=== PATIENT | female | born 1970 | race Caucasian/White ===

== ENCOUNTER 2016-11-25 06:52 | Emergency (ER) | payer BC ==
[~2016-11-25] VITALS: Ht 165.1 cm; Wt 88.4 kg
[~2016-11-25 06:52] MED LIST: ASPI81TA11 PO; ATOR10TA PO; BENI20TA25 PO; CLAR10TA7 PO; DULE100A PO; LATU40TA PO; OMEP20TA39 PO; ROBIDM5S PO; TOPA15CA PO; VERA240CR PO
[2016-11-25 06:55] VITALS: BP 147/101; PULSE 96; RESP 20; TEMP 98.4; O2SAT 96
[2016-11-25] MEDS ORDERED: TRAZ50TA12 PO (07:03)
[2016-11-25] MEDS ORDERED: HYDR25TA5 PO (07:03)
[2016-11-25] MEDS ORDERED: LURA40 PO (07:03)
[2016-11-25] MEDS ORDERED: LEXA20TA PO (07:03)
[2016-11-25] MEDS ORDERED: BENI5TAB4 PO (07:03)
[2016-11-25] MEDS ORDERED: OMEP20TA PO (07:03)
[2016-11-25] MEDS ORDERED: FISHCAP4 PO (07:03)
--- NOTE | 2016-11-25 07:23 | PD ---
HPI Chief Complaint: Respiratory Symptoms Time Seen by Provider: 07:15 Travel History International Travel<30 days: No Contact w/Intl Traveler<30days: No Traveled to known affect area: No History of Present Illness HPI The patient was seen and examined in the presence of the nurse. She complains of shortness of breath and wheezing. Duration 2 days. Severity is moderate. No fever. She does have a dry cough. She quit smoking 2 years ago. No alleviating factors. PFSH Past Medical History Hx Anticoagulant Therapy: Yes Arthritis: No Asthma: Yes Anxiety: Yes Depression: No Cancer: No Cardiovascular Problems: Yes (htn) High Cholesterol: Yes COPD: No Cerebrovascular Accident: Yes (TIA 2014) Diabetes: No Diminished Hearing: No Endocrine: No Gastrointestinal Disorders: Yes GERD: Yes Genitourinary: No Headaches: Yes Hiatal Hernia: Yes Hypertension: Yes Implanted Vascular Access Dvce: No Kidney Stones: No Musculoskeletal: No Neurologic: No Psychiatric: Yes Reproductive: Yes (UTERINE TUMORS) Respiratory: Yes (ashtma) Immunizations Current: Yes Migraines: Yes Renal Failure: No Seizures: No Sleep Apnea: No Ulcer: No Tetanus Vaccination: Unknown ?: Not Past Surgical History Abdominal Surgery: Yes (NATALIE, HYSTERECTOMY) Cardiac Surgery: No Cholecystectomy: Yes Ear Surgery: No Endocrine Surgery: No Eye Surgery: No Genitourinary Surgery: No Gynecologic Surgery: Yes (HYSTERECTOMY) Hysterectomy: Yes Neurologic Surgery: No Oral Surgery: Yes (ABSCESS LEFT SALIVARY GLAND) Thoracic Surgery: No Other Surgery: Yes (cyst left wrist) Social History Alcohol Use: No Tobacco Use: No (FORMER) Substance Use: No Allergies-Medications (Allergen,Severity, Reaction): Coded Allergies: Biaxin (Verified Allergy, Severe, Respiratory Failure, 11/25/16) Keflex (Verified Allergy, Severe, Hives, 11/25/16) Stadol (Verified Allergy, Severe, Tachycardia, 11/25/16) Penicillin (Verified Allergy, Unknown, told as child, 11/25/16) Sulfa (Verified Allergy, Unknown, told as child, 11/25/16) Reported Meds & Prescriptions Reported Meds & Active Scripts Active Prednisone 20 Mg Tab 40 Mg PO DAILY 5 Days Reported Trazodone (Trazodone HCl) 50 Mg Tab 50 Mg PO HS Latuda (Lurasidone) 40 Mg Tab 40 Mg PO DAILY Omeprazole 20 Mg Tab 20 Mg PO DAILY Fish Oil + D3 (Fish Oil-Cholecalciferol) 1,200-1,000 Mg-Unit Cap 1 Cap PO DAILY Lexapro (Escitalopram Oxalate) 20 Mg Tab 20 Mg PO DAILY Hydrochlorothiazide 25 Mg Tab 25 Mg PO DAILY Benicar (Olmesartan) 5 Mg Tab 10 Mg PO DAILY Review of Systems General / Constitutional: No: Fever Eyes: No: Visual changes HENT: No: Headaches Cardiovascular: No: Chest Pain or Discomfort Respiratory: Positive: Cough, Shortness of Breath, Wheezing Gastrointestinal: No: Abdominal Pain Genitourinary: No: Dysuria Musculoskeletal: No: Pain Skin: No Rash Neurologic: No: Weakness Psychiatric: No: Depression Endocrine: No: Polydipsia Hematologic/Lymphatic: No: Easy Bruising Physical Exam Narrative GENERAL: Well-nourished, well-developed patient with wheezing . SKIN: Warm and dry. HEAD: Atraumatic. Normocephalic. EYES: Pupils equal and round. No scleral icterus. No injection or drainage. ENT: No nasal bleeding or discharge. Mucous membranes pink and moist. NECK: Trachea midline. No JVD. CARDIOVASCULAR: Regular rate and rhythm. No murmur appreciated. RESPIRATORY: No accessory muscle use. Diffuse expiratory wheezing without crackles. Breath sounds equal bilaterally. GASTROINTESTINAL: Abdomen soft, non-tender, nondistended. Hepatic and splenic margins not palpable. MUSCULOSKELETAL: No obvious deformities. No clubbing. No cyanosis. No edema. NEUROLOGICAL: Awake and alert. No obvious cranial nerve deficits. Motor grossly within normal limits. Normal speech. PSYCHIATRIC: Appropriate mood and affect; insight and judgment normal. Data Data Last Documented VS Vital Signs Date Time Temp Pulse Resp B/P Pulse Ox O2 Delivery O2 Flow Rate FiO2 11/25/16 08:32 93 18 96 Room Air 11/25/16 06:55 98.4 147/101 Orders Methylprednisolone So Succ Inj (Solumedr (11/25/16 07:30) Albuterol-Ipratropium Neb (Duoneb Neb) (11/25/16 07:30) MDM Medical Decision Making Medical Screen Exam Complete: Yes Emergency Medical Condition: Yes Medical Record Reviewed: Yes Differential Diagnosis Asthma exacerbation, bronchitis, pneumonia Narrative Course I have reviewed the patient's electronic medical record. She has been here multiple times for asthma exacerbations I gave her series of 3 nebulizer treatments Gave her steroid injection On reassessment she is improved. Much less wheezing. 5 days of prednisone written Diagnosis Primary Impression: Asthma with acute exacerbation in adult Additional Instructions: The patient was advised to follow up with their physician and return if they worsen. Med/Other Pt SpecificInfo: Prescription(s) given Scripts Prednisone 20 Mg Tab40 Mg PO DAILY 5 Days Ref 0 Prov:Carlos Nation MD 11/25/16 Disposition: 01 DISCHARGE HOME Condition: Stable Carlos Nation MD Nov 25, 2016 07:23
[2016-11-25] MEDS ORDERED: methylPREDNISolone SOD SUCC 125 MG/2 ML VIAL IM ONE (07:30)
[2016-11-25] MEDS: RESP: ALBUTEROL 2.5 MG/IPRATROPIUM 0.5 MG NEB (SCH) INH ×2 (07:37→07:38)
[2016-11-25 08:32] VITALS: PULSE 93; RESP 18; O2SAT 96
[2016-11-25] MEDS ORDERED: PRED20 PO (08:41)
== END 2016-11-25 08:56 | disposition home or self-care (01) ==
LOC: PHED 06:52
DX: J45.901 Unspecified asthma with (acute) exacerbation (principal); I10 Essential (primary) hypertension; F41.9 Anxiety disorder, unspecified; E78.00 Pure hypercholesterolemia, unspecified; Z86.73 Personal history of transient ischemic attack (TIA), and cerebral infarction without residual deficits; Z79.01 Long term (current) use of anticoagulants; Z87.891 Personal history of nicotine dependence
CPT/HCPCS: 94640; 94664; 96372; 99284; J2930

== ENCOUNTER 2017-05-19 11:20 | Emergency (ER) | payer BC ==
[~2017-05-19] VITALS: Ht 165.1 cm; Wt 91.0 kg
[~2017-05-19 11:20] MED LIST changes: -ASPI81TA11 PO; -ATOR10TA PO; -BENI20TA25 PO; +BENI5TAB4 PO; -CLAR10TA7 PO; -DULE100A PO; +FISHCAP4 PO; +HYDR25TA5 PO; -LATU40TA PO; +LEXA20TA PO; +LURA40 PO; +OMEP20TA PO; -OMEP20TA39 PO; +PRED20 PO; -ROBIDM5S PO; -TOPA15CA PO; +TRAZ50TA12 PO; -VERA240CR PO
[2017-05-19 11:22] VITALS: BP 114/74; PULSE 81; RESP 15; TEMP 98.4; O2SAT 97
[2017-05-19] MEDS ORDERED: LOSA50TA2 PO (11:35)
[2017-05-19] MEDS ORDERED: DULO-39 PO (11:35)
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
[2017-05-19] MEDS ORDERED: ROBA750T PO (12:11)
[2017-05-19] MEDS ORDERED: IBUP-232 PO (12:11)
[2017-05-19] MEDS ORDERED: ORPHENADRINE INJ 60 MG/2 ML AMP IM ONE (12:15)
[2017-05-19] MEDS ORDERED: KETOROLAC TROMETHAMINE 60 MG/2 ML (IM) VIAL IM ONE (12:15)
== END 2017-05-19 12:19 | disposition home or self-care (01) ==
LOC: PHEFT 11:20
DX: M54.5 Low back pain (principal); I10 Essential (primary) hypertension
CPT/HCPCS: 96372; 99284; J1885; J2360

== ENCOUNTER 2017-10-22 04:03 | Emergency (ER) | payer SELFPAY ==
[~2017-10-22] VITALS: Ht 165.1 cm; Wt 91.8 kg
[~2017-10-22 04:03] MED LIST changes: +DULO-39 PO; -FISHCAP4 PO; -HYDR25TA5 PO; +IBUP-232 PO; +LOSA50TA2 PO; -LURA40 PO; -OMEP20TA PO; +OMEP20TA93 PO; -PRED20 PO; +ROBA750T PO; -TRAZ50TA12 PO
[2017-10-22 04:07] VITALS: BP 187/102; PULSE 96; RESP 24; TEMP 98.3; O2SAT 98
[2017-10-22 04:16] VITALS: BP 187/102; PULSE 96; RESP 24; TEMP 98.3; O2SAT 98
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
[2017-10-22] MEDS ORDERED: methylPREDNISolone SOD SUCC 125 MG/2 ML VIAL IV PUSH ONE (04:30)
[2017-10-22] MEDS ORDERED: TRAZ100T10 PO (04:30)
[2017-10-22] MEDS ORDERED: SODIUM CHLORIDE 0.9% FLUSH 10 ML FLUSH IVF PRN (04:30)
[2017-10-22] MEDS ORDERED: RISP1 PO (04:30)
[2017-10-22] MEDS: RESP: ALBUTEROL 2.5 MG/IPRATROPIUM 0.5 MG NEB (SCH) INH (04:33)
[2017-10-22 04:44] LABS: AUTOMATED NEUTROPHIL # 5.7 TH/MM3 (1.8-7.7); BASOPHIL # 0.2 TH/MM3 (0-0.2); BASOPHIL % 2.4 % (0.0-2.0); EOSINOPHIL # 0.8 TH/MM3 (0-0.4); EOSINOPHIL % 8.1 % (0.0-4.0); HEMATOCRIT 45.7 % (35.0-46.0); HEMO FLAGS DIFF FINAL; LYMPH % 18.7 % (9.0-44.0); LYMPHOCYTE # 1.7 TH/MM3 (1.0-4.8); MEAN CELL VOLUME 85.1 FL (80.0-100.0); MEAN CORPUSCULAR HEMOGLOBIN 27.9 PG (27.0-34.0); MEAN CORPUSCULAR HGB CONC 32.8 % (32.0-36.0); MONO % 9.5 % (0.0-8.0); NEUT % 61.3 % (16.0-70.0); PLATELET COUNT 242 TH/MM3 (150-450); RED BLOOD COUNT 5.36 MIL/MM3 (4.00-5.30); RED CELL DISTRIBUTION WIDTH 12.3 % (11.6-17.2); WHITE BLOOD COUNT 9.3 TH/MM3 (4.0-11.0)
[2017-10-22 04:55] LABS: POTASSIUM 3.8 MEQ/L (3.5-5.1)
[2017-10-22 04:58] LABS: BICARBONATE 26.8 MEQ/L (21.0-32.0); MAGNESIUM 2.1 MG/DL (1.5-2.5)
[2017-10-22 05:03] VITALS: BP 139/81; PULSE 85; RESP 20; O2SAT 93
[2017-10-22 05:07] VITALS: O2SAT 93
[2017-10-22] MEDS ORDERED: PRED20 PO (05:17)
[2017-10-22] MEDS ORDERED: DOXY100C PO (05:17)
--- NOTE | 2017-10-22 05:20 | RADRPT ---
EXAM DATE/TIME: 10/22/2017 04:37 [facility] COMPARISON: CHEST SINGLE AP, April 05, 2016, 7:28. INDICATIONS : Shortness of breath. MEDICAL HISTORY : Asthma. SURGICAL HISTORY : None. ENCOUNTER: Initial ACUITY: 1 day PAIN SCORE: 0/10 LOCATION: Bilateral chest FINDINGS: A single view of the chest demonstrates the lungs to be symmetrically aerated without evidence of mas s, infiltrate or effusion. The cardiomediastinal contours are unremarkable. Osseous structures are intact. CONCLUSION: The lungs are clear. Yunier Betancourt MD on October 22, 2017 at 5:19 Board Certified Radiologist. This report was verified electronically.
[2017-10-22] MEDS ORDERED: DOXYCYCLINE HYCLATE 100 MG CAP PO ONE (05:30)
[2017-10-22] MEDS ORDERED: SODIUM CHLORID 0.9% 500 ML INJ 500 ML IV ONE (05:30)
[2017-10-22] MEDS ORDERED: RESP: ALBUTEROL 2.5 MG/IPRATROPIUM 0.5 MG NEB (SCH) NEB ONE (05:30)
[2017-10-22 06:25] VITALS: BP 140/90
== END 2017-10-22 06:31 | disposition home or self-care (01) ==
LOC: PHED 04:03
DX: J45.41 Moderate persistent asthma with (acute) exacerbation (principal); E78.00 Pure hypercholesterolemia, unspecified; K21.9 Gastro-esophageal reflux disease without esophagitis; I10 Essential (primary) hypertension; Z79.899 Other long term (current) drug therapy; Z87.891 Personal history of nicotine dependence
CPT/HCPCS: 71010; 80048; 83735; 83880; 85025; 87081; 87804; 87880; 94640; 94664; 96361; 96374; 99284; J2930; J7040

== ENCOUNTER 2018-01-22 17:11 | Emergency (ER) | payer OTHER ==
[~2018-01-22] VITALS: Ht 165.1 cm; Wt 87.0 kg
[~2018-01-22 17:11] MED LIST changes: +DOXY100C PO; -DULO-39 PO; -IBUP-232 PO; +PRED20 PO; +RISP1 PO; -ROBA750T PO; +TRAZ100T10 PO
[2018-01-22 17:26] VITALS: BP 208/104; PULSE 82; RESP 16; TEMP 99.2; O2SAT 96
--- NOTE | 2018-01-22 17:34 | PD ---
HPI Chief Complaint: Injury Time Seen by Provider: 17:33 Travel History International Travel<30 days: No Contact w/Intl Traveler<30days: No Traveled to known affect area: No History of Present Illness HPI 47-year-old female presents to emergency department for evaluation of a painful lesion on the anterior aspect of her left distal lower extremity. Patient states she was getting into her truck about 10 days ago when she slipped, striking the front of her distal lower extremity. The bruising was initially isolated to the area but now has extended down to her ankle. She is concerned it is getting worse not better. Denies any new injury. There is moderate severity of pain, worse with palpation. No limitations in range of motion. Alterations in sensation. PFSH Past Medical History Hx Anticoagulant Therapy: Yes Arthritis: No Asthma: Yes Anxiety: Yes Depression: No Cancer: No Cardiovascular Problems: Yes (HTN) High Cholesterol: Yes COPD: No Cerebrovascular Accident: Yes (TIA 2014) Diabetes: No Diminished Hearing: No Endocrine: No Gastrointestinal Disorders: Yes GERD: Yes Genitourinary: No Headaches: Yes Hiatal Hernia: Yes Hypertension: Yes Implanted Vascular Access Dvce: No Kidney Stones: No Musculoskeletal: No Neurologic: No Psychiatric: Yes Reproductive: Yes (UTERINE TUMORS) Respiratory: Yes (Asthma) Immunizations Current: Yes Migraines: Yes Renal Failure: No Seizures: No Sleep Apnea: No Ulcer: No ?: Not Past Surgical History Abdominal Surgery: Yes (NATALIE, HYSTERECTOMY) Cardiac Surgery: No Cholecystectomy: Yes Ear Surgery: No Endocrine Surgery: No Eye Surgery: No Genitourinary Surgery: No Gynecologic Surgery: Yes (HYSTERECTOMY) Hysterectomy: Yes Oral Surgery: Yes (ABSCESS LEFT SALIVARY GLAND) Thoracic Surgery: No Other Surgery: Yes (cyst left wrist) Social History Alcohol Use: No Tobacco Use: No (FORMER) Substance Use: No Allergies-Medications (Allergen,Severity, Reaction): Coded Allergies: butorphanol (Verified Allergy, Severe, Tachycardia, 01/22/18) cephalexin (Verified Allergy, Severe, Hives, 01/22/18) clarithromycin (Verified Allergy, Severe, Respiratory Failure, 01/22/18) Sulfa (Sulfonamide Antibiotics) (Verified Allergy, Unknown, told as child , 01/22/18) penicillin G (Verified Allergy, Unknown, told as child, 01/22/18) Reported Meds & Prescriptions Reported Meds & Active Scripts Active Reported Aspirin Children's (Aspirin) 81 Mg Chew 162 Mg CHEW DAILY Hydrochlorothiazide 25 Mg Tab 25 Mg PO DAILY Risperdal (Risperidone) 1 Mg Tab 1 Mg PO DAILY Lexapro (Escitalopram Oxalate) 20 Mg Tab 20 Mg PO DAILY Benicar (Olmesartan) 5 Mg Tab 10 Mg PO DAILY Review of Systems Except as stated in HPI: all other systems reviewed are Neg Physical Exam Narrative GENERAL: Well-nourished, well-developed female patient in no acute distress SKIN: Focused skin assessment warm/dry. 1 cm in diameter scabbed over abrasion on the mid left hill. Surrounding it is contusion with ecchymosis extending down to the left foot. HEAD: Normocephalic. EYES: No scleral icterus. No injection or drainage. NECK: Supple, trachea midline. No JVD or lymphadenopathy. CARDIOVASCULAR: Regular rate and rhythm without murmurs, gallops, or rubs. RESPIRATORY: Breath sounds equal bilaterally. No accessory muscle use. MUSCULOSKELETAL: No cyanosis, or edema. Distal pulses are palpable. Cap refills within normal limits. BACK: Nontender without obvious deformity. No CVA tenderness. Data Data Last Documented VS Vital Signs Date Time Temp Pulse Resp B/P (MAP) Pulse Ox O2 Delivery O2 Flow Rate FiO2 01/22/18 17:26 99.2 82 16 208/104 (138) 96 Orders Orders Tibia/Fibula (Ap/Lat) (01/22/18 ) Ed Discharge Order (01/22/18 18:13) [facility] Medical Decision Making Medical Screen Exam Complete: Yes Emergency Medical Condition: Yes Medical Record Reviewed: Yes Differential Diagnosis Contusion versus fracture versus hematoma Narrative Course 47-year-old female presents emergency department for evaluation of a painful area on the anterior aspect of the left distal lower extremity. X-ray imaging confirms no acute bony ABnormality. Patient is counseled on care. She is encouraged to follow-up with a primary care provider and return immediately with any acute worsening symptoms. Diagnosis Primary Impression: Contusion of left lower leg Qualified Codes: S80.12XA - Contusion of left lower leg, initial encounter Referrals: Primary Care Physician Patient Instructions: Contusion in Adults (ED), General Instructions Additional Instructions: Follow-up with a primary care provider Return immediately with any acute worsening symptoms Med/Other Pt SpecificInfo: No Change to Meds Disposition: 01 DISCHARGE HOME Condition: Stable Sunni Witt Jan 22, 2018 17:34
[2018-01-22] MEDS ORDERED: HYDR25TA5 PO (17:36)
[2018-01-22] MEDS ORDERED: ASPI81CH7 CHEW (17:36)
--- NOTE | 2018-01-22 18:15 | RADRPT ---
EXAM DATE/TIME: 01/22/2018 18:01 [place] COMPARISON: No previous studies available for comparison. INDICATIONS : Left distal tibia/fibula pain with bruising post fall. MEDICAL HISTORY : Hypertension. SURGICAL HISTORY : Hysterectomy. Left knee arthroscopic surgery ENCOUNTER: Initial ACUITY: 2 weeks PAIN SCORE: 8/10 LOCATION: Left tibia/fibula FINDINGS: Two view examination of the left tibia demonstrates no evidence of fracture or dislocation. Bony min eralization is normal. The soft tissue structures are intact. CONCLUSION: Negative Yamil Albarado MD on January 22, 2018 at 18:12 Board Certified Radiologist. This report was verified electronically.
== END 2018-01-22 18:18 | disposition home or self-care (01) ==
LOC: PHEFT 17:11
DX: S80.12XA Contusion of left lower leg, initial encounter (principal); I10 Essential (primary) hypertension; E78.00 Pure hypercholesterolemia, unspecified; K21.9 Gastro-esophageal reflux disease without esophagitis; F41.9 Anxiety disorder, unspecified; W22.09XA Striking against other stationary object, initial encounter; Z79.01 Long term (current) use of anticoagulants; Z87.09 Personal history of other diseases of the respiratory system; Z86.73 Personal history of transient ischemic attack (TIA), and cerebral infarction without residual deficits; Z87.42 Personal history of other diseases of the female genital tract; Z86.69 Personal history of other diseases of the nervous system and sense organs
CPT/HCPCS: 73590; 99283

== ENCOUNTER 2018-03-22 08:57 | Emergency (ER) | payer OTHER ==
[~2018-03-22] VITALS: Ht 165.1 cm; Wt 84.5 kg
[~2018-03-22 08:57] MED LIST changes: +ASPI81CH7 CHEW; -DOXY100C PO; +HYDR25TA5 PO; -LOSA50TA2 PO; -OMEP20TA93 PO; -PRED20 PO; -TRAZ100T10 PO
[2018-03-22 08:59] VITALS: BP 182/98; PULSE 88; RESP 16; TEMP 98.3; O2SAT 100
[2018-03-22] MEDS ORDERED: TRAZ100T10 PO (09:06)
[2018-03-22] MEDS ORDERED: ESOM1CAP6 PO (09:06)
[2018-03-22] MEDS ORDERED: OLME1TAB13 PO (09:06)
[2018-03-22] MEDS ORDERED: methylPREDNISolone SOD SUCC 125 MG/2 ML VIAL IM ONE (09:15)
[2018-03-22] MEDS: RESP: ALBUTEROL 2.5 MG/IPRATROPIUM 0.5 MG NEB (SCH) INH (09:18)
[2018-03-22 09:20] VITALS: O2SAT 99
--- NOTE | 2018-03-22 09:23 | PD ---
HPI Chief Complaint: Respiratory Symptoms Time Seen by Provider: 09:08 Travel History International Travel<30 days: No Contact w/Intl Traveler<30days: No Traveled to known affect area: No History of Present Illness HPI 47-year-old female with history of COPD, asthma and previous tobacco dependence presents to the emergency department complaining of increased shortness of breath, cough, and wheezing. Patient states that she started feeling congested on Thursday and her cough has only worsened throughout the weekend. Patient states she has had a nonproductive cough but believes that it may become productive. Says that the cough and wheezing she is experiencing is similar to previous episodes of "bronchitis". Patient says she has been using her medications which include an inhaler but says this medication is-year-old and is unsure if it is effective. Patient denies fevers but says she has had chills. Says she has shortness of breath but again states this is secondary to her wheezing in her lungs. Denies chest pain. Denies nausea, vomiting or diarrhea. Says she has had potentially sick contacts at work as a coworker went home sick today the same symptoms. Denies recent travel, surgeries, blood clots. She takes aspirin daily. She does not currently have a primary care physician although is due to follow-up with one. She also has history of hypertension, hyperlipidemia. Her last asthma exacerbation was in October of last year. Says she has 3 exacerbations per year normally. PFSH Past Medical History Hx Anticoagulant Therapy: Yes Arthritis: No Asthma: Yes Anxiety: Yes Depression: Yes Cancer: No Cardiovascular Problems: Yes (htn on meds) High Cholesterol: Yes COPD: No Cerebrovascular Accident: Yes (TIA 2014) Diabetes: No Diminished Hearing: No Endocrine: No Gastrointestinal Disorders: Yes GERD: Yes Genitourinary: No Headaches: Yes Hiatal Hernia: Yes Hypertension: Yes Implanted Vascular Access Dvce: No Kidney Stones: No Musculoskeletal: No Neurologic: No Psychiatric: Yes Reproductive: Yes (UTERINE TUMORS) Respiratory: Yes (asthma) Immunizations Current: Yes Migraines: Yes Renal Failure: No Seizures: No Sleep Apnea: No Ulcer: No Influenza Vaccination: No ?: Not Past Surgical History Abdominal Surgery: Yes (NATALIE, HYSTERECTOMY) Cardiac Surgery: No Cholecystectomy: Yes Ear Surgery: No Endocrine Surgery: No Eye Surgery: No Genitourinary Surgery: No Gynecologic Surgery: Yes (HYSTERECTOMY) Hysterectomy: Yes Oral Surgery: Yes (ABSCESS LEFT SALIVARY GLAND) Thoracic Surgery: No Other Surgery: Yes (cyst left wrist salivary abscess) Social History Alcohol Use: Yes (RARELY) Tobacco Use: No Substance Use: No Allergies-Medications (Allergen,Severity, Reaction): Coded Allergies: butorphanol (Verified Allergy, Severe, Tachycardia, 03/22/18) cephalexin (Verified Allergy, Severe, Hives, 03/22/18) clarithromycin (Verified Allergy, Severe, Respiratory Failure, 03/22/18) Sulfa (Sulfonamide Antibiotics) (Verified Allergy, Unknown, told as child , 03/22/18) penicillin G (Verified Allergy, Unknown, told as child, 03/22/18) Reported Meds & Prescriptions Reported Meds & Active Scripts Active Duoneb (Ipratropium-Albuterol Neb) 0.5-2.5 Mg/3 Ml Neb 1 Nebule INH Q6HR NEB Doxycycline Hyclate 100 Mg Cap 100 Mg PO BID Medrol Dosepak (Methylprednisolone) 4 Mg Dspk 4 Mg PO DIRECTED Per Pharmacist direction Reported Trazodone (Trazodone HCl) 100 Mg Tablet 100 Mg PO HS Nexium 24 HR (Esomeprazole DR) 20 Mg Capdr 20 Mg PO DAILY Olmesartan 40 Mg Tab 40 Mg PO DAILY Aspirin Children's (Aspirin) 81 Mg Chew 162 Mg CHEW DAILY Risperdal (Risperidone) 1 Mg Tab 1 Mg PO DAILY Lexapro (Escitalopram Oxalate) 20 Mg Tab 20 Mg PO DAILY Review of Systems Except as stated in HPI: all other systems reviewed are Neg Physical Exam Narrative GENERAL: Well-nourished, well-developed patient. Coughing and audible wheezing SKIN: Focused skin assessment warm/dry. HEAD: Normocephalic. EYES: No scleral icterus. No injection or drainage. NECK: Supple, trachea midline. No JVD or lymphadenopathy. EARS: Bilateral pinnae and external canals appear within normal limits. Bilateral tympanic membranes without erythema, dullness or perforation. THROAT: No pharyngeal injection, exudates, or tonsillar hypertrophy. Airway is patent. CARDIOVASCULAR: Regular rate and rhythm without murmurs, gallops, or rubs. RESPIRATORY: Breath sounds equal bilaterally. No accessory muscle use. Bilateral wheezes with rhonchi MUSCULOSKELETAL: No cyanosis, or edema. Homans sign negative bilaterally BACK: Nontender without obvious deformity. No CVA tenderness. Data Data Last Documented VS Vital Signs Date Time Temp Pulse Resp B/P (MAP) Pulse Ox O2 Delivery O2 Flow Rate FiO2 03/22/18 09:20 99 03/22/18 08:59 98.3 88 16 182/98 (126) Orders Orders Methylprednisolone So Succ Inj (Solumedr (03/22/18 09:15) Albuterol-Ipratropium Neb (Duoneb Neb) (03/22/18 09:15) Ed Discharge Order (03/22/18 09:44) [facility] Medical Decision Making Medical Screen Exam Complete: Yes Emergency Medical Condition: Yes Differential Diagnosis Asthma exacerbation, URI, bronchitis, pneumonia Narrative Course 47-year-old female with history of COPD and asthma presents emergency department with an apparent asthma versus COPD exacerbation. Physical exam findings demonstrate a well-developed, well-nourished 47-year-old female in no acute distress. She is coughing upon arrival. Wheezes and rhonchi present bilateral lobes. Vital signs are stable. Decided to avoid a chest x-ray as it would not change my treatment plan today. Solu-Medrol 125 mg, duo nebs 2 administered. Reassessment demonstrates less wheezing and coughing. Patient will be discharged with doxycycline, Medrol Dosepak to start tomorrow, and DuoNeb nebulizer medication. Advised that she should follow-up with her primary care physician. She should return for worsening or persistent symptoms. Diagnosis Primary Impression: Asthma with acute exacerbation in adult Qualified Codes: J45.21 - Mild intermittent asthma with (acute) exacerbation Referrals: [facility] Primary Care Physician Departure Forms: Tests/Procedures, Work Release Enter return to work date: March 24, 2018 Additional Instructions: Follow-up with your primary care physician within 2-3 days. Ensure adequate fluid intake and proper nutrition. Take all medications as prescribed. Scripts Ipratropium-Albuterol Neb (Duoneb) 0.5-2.5 Mg/3 Ml Neb 1 NEBULE INH Q6HR NEB for Breathing Treatment, #120 NEBULE 0 Refills Prov: Kalee Morgan DO 03/22/18 Doxycycline Hyclate (Doxycycline Hyclate) 100 Mg Cap 100 MG PO BID for Infection, #20 CAP 0 Refills Prov: Kalee Morgan DO 5/14/18 Methylprednisolone Dosepak (Medrol Dosepak) 4 Mg Dspk 4 MG PO DIRECTED, #1 DSPK 0 Refills Per Pharmacist direction Prov: Kalee Morgan DO 03/22/18 Disposition: 01 DISCHARGE HOME Condition: Stable Ammy Alexander March 22, 2018 09:23
[2018-03-22] MEDS ORDERED: MEDR4PAK PO (09:24)
[2018-03-22] MEDS ORDERED: DOXY100C PO (09:24)
[2018-03-22] MEDS ORDERED: VENTAER INH (09:24)
[2018-03-22] MEDS ORDERED: IPRA17I INH (09:24)
[2018-03-22] MEDS ORDERED: IPRASOL INH (09:42)
== END 2018-03-22 09:54 | disposition home or self-care (01) ==
LOC: PHEFT 08:57
DX: J45.901 Unspecified asthma with (acute) exacerbation (principal); J44.9 Chronic obstructive pulmonary disease, unspecified; I10 Essential (primary) hypertension; E78.5 Hyperlipidemia, unspecified; E78.00 Pure hypercholesterolemia, unspecified; K21.9 Gastro-esophageal reflux disease without esophagitis; F41.9 Anxiety disorder, unspecified; Z86.73 Personal history of transient ischemic attack (TIA), and cerebral infarction without residual deficits; Z79.82 Long term (current) use of aspirin
CPT/HCPCS: 94640; 94664; 96372; 99283; J2930

== ENCOUNTER 2018-04-09 11:55 | Emergency (ER) | payer OTHER ==
[~2018-04-09] VITALS: Ht 165.1 cm; Wt 82.0 kg
[~2018-04-09 11:55] MED LIST changes: -BENI5TAB4 PO; +DOXY100C PO; +ESOM1CAP6 PO; -HYDR25TA5 PO; +IPRASOL INH; +MEDR4PAK PO; +OLME1TAB13 PO; +TRAZ100T10 PO
[2018-04-09 11:59] VITALS: BP 161/92; PULSE 94; RESP 20; TEMP 98.5; O2SAT 99
[2018-04-09] MEDS ORDERED: SODIUM CHLOR 0.9% 1000 ML INJ 1,000 ML IV ONE (12:23)
--- NOTE | 2018-04-09 12:28 | PD ---
HPI Chief Complaint: Flank/Kidney Pain Time Seen by Provider: 12:23 Travel History International Travel<30 days: No Contact w/Intl Traveler<30days: No Traveled to known affect area: No History of Present Illness HPI Patient comes in complaining of left-sided flank pain over the past 3 days, denies any alleviating or aggravating factors. Rates it 7-8 out of 10, persistent throbbing with occasional sharp pains. Patient denies any associated factors such as fever, rash, headache, neck pain, chest pain, visual changes, runny nose/cough/sore throat, no dysuria or hematuria noted either. Allergies to sulfa, butorphanol, Keflex, Biaxin, penicillin Past medical history significant for corrective lenses, head trauma, headaches/ migraine, hypertension, hypercholesterolemia, asthma, GERD, gallbladder disease status post cholecystectomy, hysterectomy, depression anxiety PFSH Past Medical History Hx Anticoagulant Therapy: Yes Arthritis: No Asthma: Yes Anxiety: Yes Depression: Yes Cancer: No Cardiovascular Problems: Yes (htn on meds) High Cholesterol: Yes COPD: No Cerebrovascular Accident: Yes (TIA 2014) Diabetes: No Diminished Hearing: No Endocrine: No Gastrointestinal Disorders: Yes GERD: Yes Genitourinary: No Headaches: Yes Hiatal Hernia: Yes Hypertension: Yes Implanted Vascular Access Dvce: No Kidney Stones: No Musculoskeletal: No Neurologic: No Psychiatric: Yes Reproductive: Yes (UTERINE TUMORS) Respiratory: Yes (asthma) Immunizations Current: Yes Migraines: Yes Renal Failure: No Seizures: No Sleep Apnea: No Ulcer: No Influenza Vaccination: No ?: Not Past Surgical History Abdominal Surgery: Yes (NATALIE, HYSTERECTOMY) Cardiac Surgery: No Cholecystectomy: Yes Ear Surgery: No Endocrine Surgery: No Eye Surgery: No Genitourinary Surgery: No Gynecologic Surgery: Yes (HYSTERECTOMY) Hysterectomy: Yes Neurologic Surgery: No Oral Surgery: Yes (ABSCESS LEFT SALIVARY GLAND) Thoracic Surgery: No Other Surgery: Yes (cyst left wrist salivary abscess) Social History Alcohol Use: Yes (RARELY) Tobacco Use: No Substance Use: No Allergies-Medications (Allergen,Severity, Reaction): Coded Allergies: butorphanol (Verified Allergy, Severe, Tachycardia, 04/09/18) cephalexin (Verified Allergy, Severe, Hives, 04/09/18) clarithromycin (Verified Allergy, Severe, Respiratory Failure, 04/09/18) Sulfa (Sulfonamide Antibiotics) (Verified Allergy, Unknown, told as child , 04/09/18) penicillin G (Verified Allergy, Unknown, told as child, 04/09/18) Reported Meds & Prescriptions Reported Meds & Active Scripts Active Baclofen 20 Mg Tab 20 Mg PO TID Ketorolac (Ketorolac Tromethamine) 10 Mg Tab 10 Mg PO TID Duoneb (Ipratropium-Albuterol Neb) 0.5-2.5 Mg/3 Ml Neb 1 Nebule INH Q6HR NEB Reported Trazodone (Trazodone HCl) 100 Mg Tablet 100 Mg PO HS Nexium 24 HR (Esomeprazole DR) 20 Mg Capdr 20 Mg PO DAILY Olmesartan 40 Mg Tab 40 Mg PO DAILY Aspirin Children's (Aspirin) 81 Mg Chew 162 Mg CHEW DAILY Risperdal (Risperidone) 1 Mg Tab 1 Mg PO DAILY Lexapro (Escitalopram Oxalate) 20 Mg Tab 20 Mg PO DAILY Review of Systems General / Constitutional: No: Fever Eyes: No: Visual changes HENT: No: Headaches Cardiovascular: No: Chest Pain or Discomfort Respiratory: No: Shortness of Breath Gastrointestinal: No: Abdominal Pain Genitourinary: Positive: Flank Pain Musculoskeletal: No: Pain Skin: No Rash Neurologic: No: Weakness Psychiatric: No: Depression Endocrine: No: Polydipsia Hematologic/Lymphatic: No: Easy Bruising Physical Exam Narrative GENERAL: SKIN: Warm and dry. No rash HEAD: Atraumatic. Normocephalic. EYES: Pupils equal and round. No scleral icterus. No injection or drainage. ENT: No nasal bleeding or discharge. Mucous membranes pink and moist. NECK: Trachea midline. No JVD. CARDIOVASCULAR: Regular rate and rhythm. RESPIRATORY: No accessory muscle use. Clear to auscultation. Breath sounds equal bilaterally. GASTROINTESTINAL: Abdomen soft, non-tender, nondistended. MUSCULOSKELETAL: Extremities without clubbing, cyanosis, or edema. No obvious deformities. NEUROLOGICAL: Awake and alert. No obvious cranial nerve deficits. Motor grossly within normal limits. Five out of 5 muscle strength in the arms and legs. Normal speech. PSYCHIATRIC: Appropriate mood and affect; insight and judgment normal. Data Data Last Documented VS Vital Signs Date Time Temp Pulse Resp B/P (MAP) Pulse Ox O2 Delivery O2 Flow Rate FiO2 04/09/18 11:59 98.5 94 20 161/92 (115) 99 Orders Orders Complete Blood Count With Diff (04/09/18 12:23) Comprehensive Metabolic Panel (04/09/18 12:23) Urinalysis - C+S If Indicated (04/09/18 12:23) Ct Abd/Pel W/O Iv Contrast (04/09/18 12:23) Ecg Monitoring (04/09/18 12:23) Iv Access Insert/Monitor (04/09/18 12:23) Ketorolac Inj (Toradol Inj) (04/09/18 12:30) Sodium Chloride 0.9% Flush (Ns Flush) (04/09/18 12:30) Sodium Chlor 0.9% 1000 Ml Inj (Ns 1000 M (04/09/18 12:23) Lipase (04/09/18 12:24) Potassium Chloride Eff (K-Lyte Cl Eff) (04/09/18 14:00) Lorazepam Inj (Ativan Inj) (04/09/18 14:00) Labs Laboratory Tests Test 04/09/18 12:30 04/09/18 12:45 Urine Collection Type CLEAN CATCH Urine Color YELLOW Urine Turbidity CLEAR Urine pH 6.0 Urine Specific [place] 1.020 Urine Protein NEG mg/dL Urine Glucose (UA) NEG mg/dL Urine Ketones NEG mg/dL Urine Occult Blood NEG Urine Nitrite NEG Urine Bilirubin NEG Urine Urobilinogen 0.2 MG/DL Urine Leukocyte Esterase NEG Urine RBC 0-3 /hpf Urine WBC 0-2 /hpf Urine Squamous Epithelial Cells 0-5 /hpf Urine Hyaline Casts 25-49 /lpf Microscopic Urinalysis Comment CULT NOT INDICATED White Blood Count 8.9 TH/MM3 Red Blood Count 5.19 MIL/MM3 Hemoglobin 14.9 GM/DL Hematocrit 44.7 % Mean Corpuscular Volume 86.0 FL Mean Corpuscular Hemoglobin 28.8 PG Mean Corpuscular Hemoglobin Concent 33.4 % Red Cell Distribution Width 13.1 % Platelet Count 239 TH/MM3 Mean Platelet Volume 10.4 FL Neutrophils (%) (Auto) 65.6 % Lymphocytes (%) (Auto) 19.8 % Monocytes (%) (Auto) 8.7 % Eosinophils (%) (Auto) 4.3 % Basophils (%) (Auto) 1.6 % Neutrophils # (Auto) 5.8 TH/MM3 Lymphocytes # (Auto) 1.8 TH/MM3 Monocytes # (Auto) 0.8 TH/MM3 Eosinophils # (Auto) 0.4 TH/MM3 Basophils # (Auto) 0.1 TH/MM3 CBC Comment DIFF FINAL Differential Comment Blood Urea Nitrogen 12 MG/DL Creatinine 1.10 MG/DL Random Glucose 114 MG/DL Total Protein 8.0 GM/DL Albumin 4.2 GM/DL Calcium Level 9.1 MG/DL Alkaline Phosphatase 94 U/L Aspartate Amino Transf (AST/SGOT) 30 U/L Alanine Aminotransferase (ALT/SGPT) 35 U/L Total Bilirubin 0.4 MG/DL Sodium Level 139 MEQ/L Potassium Level 2.9 MEQ/L Chloride Level 103 MEQ/L Carbon Dioxide Level 27.0 MEQ/L Anion Gap 9 MEQ/L Estimat Glomerular Filtration Rate 53 ML/MIN Lipase 120 U/L [facility] Medical Decision Making Medical Screen Exam Complete: Yes Emergency Medical Condition: Yes Medical Record Reviewed: Yes Differential Diagnosis Musculoskeletal pain. Versus pyelonephritis versus kidney stone versus colitis versus diverticulitis Narrative Course CBC shows no leukocytosis, no anemia, normal platelet count, no left shift UA is negative for any UTI Normal pancreatic enzymes Electrolytes are all within normal limits with the exception of hypokalemia of 2.9, normal kidney liver and pancreatic functions. CT abdomen and pelvis read by radiologist as unremarkable left kidney with no renal calculi or obstruction, single nonobstructing 1 mm right renal calculus. Diagnosis Primary Impression: Musculoskeletal spasm Patient Instructions: General Instructions, Muscle Spasm (ED) Departure Forms: Tests/Procedures, Work Release Enter return to work date: Apr 11, 2018 Scripts Potassium Chloride ER (Potassium Chloride ER) 20 Meq Tab 40 MEQ PO BID for Electrolyte Replacement for 5 Days, #20 TAB 0 Refills Prov: Rico Fatima MD 04/09/18 Baclofen (Baclofen) 20 Mg Tab 20 MG PO TID for Muscle Spasm, #12 TAB 0 Refills Prov: Rico Fatima MD 04/09/18 Ketorolac (Ketorolac) 10 Mg Tab 10 MG PO TID for Pain Management, #15 TAB 0 Refills Prov: Rico Fatima MD 04/09/18 Disposition: 01 DISCHARGE HOME Condition: Stable Rico Fatima MD Apr 09, 2018 12:28
[2018-04-09] MEDS ORDERED: KETOROLAC TROMETHAMINE 30 MG/ML (IVP) VIAL IV PUSH ONE (12:30)
[2018-04-09] MEDS ORDERED: SODIUM CHLORIDE 0.9% FLUSH 10 ML FLUSH IVF PRN (12:30)
[2018-04-09 12:59] LABS: AUTOMATED NEUTROPHIL # 5.8 TH/MM3 (1.8-7.7); BASOPHIL # 0.1 TH/MM3 (0-0.2); BASOPHIL % 1.6 % (0.0-2.0); EOSINOPHIL # 0.4 TH/MM3 (0-0.4); EOSINOPHIL % 4.3 % (0.0-4.0); HEMATOCRIT 44.7 % (35.0-46.0); HEMOGLOBIN 14.9 GM/DL (11.6-15.3); LYMPH % 19.8 % (9.0-44.0); LYMPHOCYTE # 1.8 TH/MM3 (1.0-4.8); MEAN CORPUSCULAR HEMOGLOBIN 28.8 PG (27.0-34.0); MEAN CORPUSCULAR HGB CONC 33.4 % (32.0-36.0); MEAN PLATELET VOLUME 10.4 FL (7.0-11.0); MONO % 8.7 % (0.0-8.0); MONOCYTE # 0.8 TH/MM3 (0-0.9); NEUT % 65.6 % (16.0-70.0); PLATELET COUNT 239 TH/MM3 (150-450); RED BLOOD COUNT 5.19 MIL/MM3 (4.00-5.30); RED CELL DISTRIBUTION WIDTH 13.1 % (11.6-17.2); WHITE BLOOD COUNT 8.9 TH/MM3 (4.0-11.0)
[2018-04-09 13:04] LABS: BILIRUBIN, URINE NEG (NEG); BLOOD, URINE NEG (NEG); GLUCOSE,URINE NEG (NEG); KETONE, URINE NEG (NEG); NITRITE,URINE NEG (NEG); URINE COLOR YELLOW (YELLW/STRAW); URINE LEUKOCYTE ESTERASE NEG (NEG)
[2018-04-09 13:08] LABS: RBC, URINE 0-3 /hpf (0-3); SQUAMOUS EPITHELIAL CELL URINE 0-5 /hpf (0-5); WBC, URINE 0-2 /hpf (0-5)
--- NOTE | 2018-04-09 13:10 | RADRPT ---
EXAM DATE: 04/09/2018 12:54 PM EDT AGE/SEX: 47 years / Female INDICATIONS: Left flank pain x 3 days. CLINICAL DATA: This is the patient's initial encounter. Patient reports that signs and symptoms have been present for 3 days and indicates a pain score of 8/10. MEDICAL/SURGICAL HISTORY: Gastroesophageal reflux disease. Cerebrovascular disease. Hypertens ion. Asthma. Cholecystectomy. Hysterectomy. RADIATION DOSE: 11.01 CTDI (mGy) COMPARISON: No prior [facility] exams available for comparison. TECHNIQUE: Multiple contiguous axial images were obtained through the abdomen. Images were obtained using multiple row detector helical technique. Using dose reduction techniques, radiation dose was ke pt as low as reasonably achievable to obtain optimal diagnostic quality images. FINDINGS: Lower Lungs: The visualized lower lungs are clear. Liver: The liver has a homogeneous density without space-occupying lesion. There is no dilation of th e biliary tree. The patient is status post cholecystectomy with surgical clips antonietta hepatis. Spleen: Homogeneous density without enlargement. Pancreas: Unremarkable without mass or calcification. Kidneys: Normal in size and shape. No evidence of mass or hydronephrosis. There are no left renal ca lculi. There is a single 1 mm nonobstructing right calculus. Adrenal Glands: Unremarkable. Aorta: The aorta and proximal iliac vessels are grossly unremarkable without aneurysmal dilation. Bowel/Mesentery: The bowel loops are grossly unremarkable. The cecum and sigmoid colon have a normal configuration. Abdominal Wall: Intact. Retroperitoneum: No evidence of adenopathy in the retrocrural, para-aortic, or deep pelvic regions. Bladder: Contours are smooth. Reproductive Organs: No abnormal masses or calcifications seen. Inguinal: The inguinal region is unremarkable without evidence of adenopathy. Bony Structures: Unremarkable. CONCLUSION: 1. The left kidney is unremarkable in appearance with no renal calculi or obstruction. 2. Single nonobstructing 1 mm right renal calculus. Electronically signed by: Darron Aldana MD 04/09/2018 1:09 PM EDT
[2018-04-09 13:27] LABS: ALBUMIN 4.2 GM/DL (3.4-5.0); ALKALINE PHOSPHATASE 94 U/L (45-117); ALT (GPT) 35 U/L (10-53); AST (GOT) 30 U/L (15-37); BLOOD UREA NITROGEN 12 MG/DL (7-18); CALCIUM 9.1 MG/DL (8.5-10.1); CHLORIDE 103 MEQ/L (98-107); GLOMERULAR FILTRATION RATE 53 ML/MIN (>89); GLUCOSE,RANDOM 114 MG/DL (74-106); SODIUM (NA) 139 MEQ/L (136-145); TOTAL BILIRUBIN ADULT 0.4 MG/DL (0.2-1.0)
[2018-04-09] MEDS ORDERED: LORazepam 2 MG/ML VIAL IV PUSH ONE (14:00)
[2018-04-09] MEDS ORDERED: POTASSIUM CHLORIDE 25 MEQ EFFERVESCENT TAB PO ONE (14:00)
[2018-04-09] MEDS ORDERED: KETO10 PO (14:03)
[2018-04-09] MEDS ORDERED: BACL20TA PO (14:03)
[2018-04-09] MEDS ORDERED: POTA-163 PO (14:07)
[2018-04-09 14:32] VITALS: BP 153/97
== END 2018-04-09 14:40 | disposition home or self-care (01) ==
LOC: PHED 11:55
DX: M62.838 Other muscle spasm (principal); E87.6 Hypokalemia; N20.0 Calculus of kidney; E78.00 Pure hypercholesterolemia, unspecified; F32.9 Major depressive disorder, single episode, unspecified; F41.9 Anxiety disorder, unspecified; I10 Essential (primary) hypertension; K21.9 Gastro-esophageal reflux disease without esophagitis; Z86.73 Personal history of transient ischemic attack (TIA), and cerebral infarction without residual deficits
CPT/HCPCS: 74176; 80053; 81001; 83690; 85025; 96361; 96374; 96375; 99284; J1885; J2060; J7030

== ENCOUNTER 2018-04-11 22:02 | Observation (INO) | payer OTHER ==
[2018-04-11] VITALS (11 sets, daily range): BP systolic 160–260; BP diastolic 80–146; PULSE 66–101; RESP 20; O2SAT 97–99
[~2018-04-11] VITALS: Ht 165.1 cm; Wt 84.1 kg
[~2018-04-11 22:02] MED LIST changes: +BACL20TA PO; +KETO10 PO; +POTA-163 PO
[2018-04-11] MEDS ORDERED: SODIUM CHLOR 0.9% 1000 ML INJ 1,000 ML IV ONE (22:12)
[2018-04-11 22:36] LABS: BASOPHIL # 0.1 TH/MM3 (0-0.2); BASOPHIL % 0.6 % (0.0-2.0); EOSINOPHIL # 0.6 TH/MM3 (0-0.4); EOSINOPHIL % 6.5 % (0.0-4.0); HEMATOCRIT 42.5 % (35.0-46.0); LYMPH % 27.5 % (9.0-44.0); LYMPHOCYTE # 2.4 TH/MM3 (1.0-4.8); MEAN CELL VOLUME 85.4 FL (80.0-100.0); MEAN CORPUSCULAR HEMOGLOBIN 28.1 PG (27.0-34.0); MEAN CORPUSCULAR HGB CONC 32.9 % (32.0-36.0); MEAN PLATELET VOLUME 10.3 FL (7.0-11.0); MONO % 8.1 % (0.0-8.0); MONOCYTE # 0.7 TH/MM3 (0-0.9); NEUT % 57.3 % (16.0-70.0); PLATELET COUNT 206 TH/MM3 (150-450); RED BLOOD COUNT 4.98 MIL/MM3 (4.00-5.30); RED CELL DISTRIBUTION WIDTH 12.2 % (11.6-17.2); WHITE BLOOD COUNT 8.8 TH/MM3 (4.0-11.0)
[2018-04-11 22:43] LABS: CHLORIDE 108 MEQ/L (98-107); SODIUM (NA) 142 MEQ/L (136-145)
[2018-04-11 22:45] LABS: CALCIUM 8.4 MG/DL (8.5-10.1)
[2018-04-11 22:46] LABS: BICARBONATE 28.7 MEQ/L (21.0-32.0); BLOOD UREA NITROGEN 4 MG/DL (7-18); GLUCOSE,RANDOM 98 MG/DL (74-106)
[2018-04-11 22:49] LABS: CREATININE 0.86 MG/DL (0.50-1.00); GLOMERULAR FILTRATION RATE 71 ML/MIN (>89)
--- NOTE | 2018-04-11 22:50 | RADRPT ---
EXAM DATE: 04/11/2018 10:44 PM EDT AGE/SEX: 47 years / Female INDICATIONS: Stroke alert. Left side weakness. CLINICAL DATA: This is the patient's initial encounter. Patient reports that signs and symptoms have been present for 1 day and indicates a pain score of 4/10. MEDICAL/SURGICAL HISTORY: None. None. RADIATION DOSE: 50.82 CTDI (mGy) COMPARISON: [facility], CT BRAIN W/O CONTRAST, 04/05/2016. [facility], CT BRAIN W/O CONTRAST, 08/26/2015. . Report was called by Dr. Post to Dr. Moreno at 10:50 PM on 04/11/2018. TECHNIQUE: CT of the head without contrast. Using automated exposure control and adjustment of the mA and/or kV according to patient size, radiation dose was kept as low as reasonably achievable to ob tain optimal diagnostic quality images. FINDINGS: Cerebrum: The ventricles are normal for age. No evidence of midline shift, mass lesion, hemorrhage or acute infarction. No extraaxial fluid collections are seen. Posterior Fossa: The cerebellum and brainstem are intact. The 4th ventricle is midline. The cerebe llopontine angle is unremarkable. Extracranial: The visualized portion of the orbits is intact. Skull: The calvaria is intact. No evidence of skull fracture. CONCLUSION: 1. Negative CT Head non contrast. Electronically signed by: Too Post MD 04/11/2018 10:49 PM EDT
--- NOTE | 2018-04-11 22:52 | PD ---
HPI Chief Complaint: Numbness/Tingling Time Seen by Provider: 22:12 Travel History International Travel<30 days: No Contact w/Intl Traveler<30days: No Traveled to known affect area: No History of Present Illness HPI 47-year-old female presents to the emergency department by private transportation for evaluation of awakening with new left upper extremity weakness and tingling. Patient has history of recurrent TIAs. Patient states she went to bed at 7:30 and awakened at 9:25 PM to go to the bathroom and noticed that she had weakness and tingling of the left upper extremity. Patient does not report and does not report any associated headache altered mentation visual disturbance speech disturbance difficulty swallowing chest pain neck pain palpitations shortness of breath nausea vomiting or right upper extremity or right lower extremity numbness tingling or weakness. Patient does not report any left lower extremity weakness. Patient drove herself to the hospital. Patient reports she has had similar presentations in the past and been diagnosed with TIAs. Patient has high blood pressure and takes her blood pressure medication in the morning and took her blood pressure medication last in the morning. PFSH Past Medical History Narrative Medical 81 mg/low-dose aspirin, dyslipidemia hypertension TIA GERD anxiety depression migraine; cholecystectomy hysterectomy; nursing notes reviewed; no tobacco use Hx Anticoagulant Therapy: Yes Arthritis: No Asthma: Yes Anxiety: Yes Depression: Yes Cancer: No Cardiovascular Problems: Yes (htn on meds) High Cholesterol: Yes COPD: No Cerebrovascular Accident: Yes (TIA 2014) Diabetes: No Diminished Hearing: No Endocrine: No Gastrointestinal Disorders: Yes GERD: Yes Genitourinary: No Headaches: Yes Hiatal Hernia: Yes Hypertension: Yes Implanted Vascular Access Dvce: No Kidney Stones: No Musculoskeletal: No Neurologic: No Psychiatric: Yes Reproductive: Yes (UTERINE TUMORS) Respiratory: Yes (asthma) Immunizations Current: Yes Migraines: Yes Renal Failure: No Seizures: No Sleep Apnea: No Ulcer: No Past Surgical History Abdominal Surgery: Yes (NATALIE, HYSTERECTOMY) Cardiac Surgery: No Cholecystectomy: Yes Ear Surgery: No Endocrine Surgery: No Eye Surgery: No Genitourinary Surgery: No Gynecologic Surgery: Yes (HYSTERECTOMY) Hysterectomy: Yes Neurologic Surgery: No Oral Surgery: Yes (ABSCESS LEFT SALIVARY GLAND) Thoracic Surgery: No Other Surgery: Yes (cyst left wrist salivary abscess) Social History Alcohol Use: Yes (RARELY) Tobacco Use: No Substance Use: No Allergies-Medications (Allergen,Severity, Reaction): Coded Allergies: butorphanol (Verified Allergy, Severe, Tachycardia, 04/11/18) cephalexin (Verified Allergy, Severe, Hives, 04/11/18) clarithromycin (Verified Allergy, Severe, Respiratory Failure, 04/11/18) Sulfa (Sulfonamide Antibiotics) (Verified Allergy, Unknown, told as child , 04/11/18) penicillin G (Verified Allergy, Unknown, told as child, 04/11/18) Reported Meds & Prescriptions Reported Meds & Active Scripts Active Potassium Chloride ER (Potassium Chloride) 20 Meq Tab 40 Meq PO BID 5 Days Duoneb (Ipratropium-Albuterol Neb) 0.5-2.5 Mg/3 Ml Neb 1 Nebule INH Q6HR NEB Reported Hydrochlorothiazide 25 Mg Tab 25 Mg PO DAILY Trazodone (Trazodone HCl) 100 Mg Tablet 100 Mg PO HS Nexium 24 HR (Esomeprazole DR) 20 Mg Capdr 20 Mg PO DAILY Olmesartan 40 Mg Tab 40 Mg PO DAILY Aspirin Children's (Aspirin) 81 Mg Chew 162 Mg CHEW DAILY Risperdal (Risperidone) 1 Mg Tab 1 Mg PO DAILY Lexapro (Escitalopram Oxalate) 20 Mg Tab 20 Mg PO DAILY Review of Systems Except as stated in HPI: all other systems reviewed are Neg Physical Exam Narrative GENERAL: Well-developed well-nourished female no acute distress no respiratory distress no slurring of speech GCS 15 SKIN: Warm and dry. HEAD: Atraumatic. Normocephalic. EYES: Pupils equal and round reactive to light. Extraocular muscles intact. No scleral icterus. No injection or drainage. ENT: No nasal bleeding or discharge. Mucous membranes pink and moist. Airway is patent. NECK: Trachea midline. No JVD. Supple no meningismus no nuchal rigidity CARDIOVASCULAR: Regular rate and rhythm. RESPIRATORY: No accessory muscle use. Clear to auscultation. Breath sounds equal bilaterally. GASTROINTESTINAL: Abdomen soft, non-tender, nondistended. Hepatic and splenic margins not palpable. MUSCULOSKELETAL: Extremities without clubbing, cyanosis, or edema. No obvious deformities. NEUROLOGICAL: Awake and alert. No obvious cranial nerve deficits. Motor grossly within normal limits. 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 DTRs 2+ and equal bilaterally no clonus. No limb ataxia except for minimal left lower extremity limb ataxia. No pronator drift. Normal speech. PSYCHIATRIC: Appropriate mood and affect; insight and judgment normal. Data Data Last Documented VS Vital Signs Date Time Temp Pulse Resp B/P (MAP) Pulse Ox O2 Delivery O2 Flow Rate FiO2 04/12/18 00:33 88 20 142/87 (105) 98 04/11/18 22:43 Nasal Cannula 2.00 04/11/18 22:10 21 Orders Orders Cath For Specimen (04/11/18 22:12) Neuro Checks Q2HX12,Q4H (04/11/18 22:12) Nursing Bedside Swallow Assess .ONCE (04/11/18 22:12) Activity Bed Rest (04/11/18 22:12) Prothrombin Time / Inr (Pt) (04/11/18 22:12) Act Partial Throm Time (Ptt) (04/11/18 22:12) Complete Blood Count With Diff (04/11/18 22:12) Basic Metabolic Panel (Bmp) (04/11/18 22:12) Fibrinogen (04/11/18 22:12) Creatine Kinase (Cpk) (04/11/18 22:12) Troponin I (04/11/18 22:12) Ua Includes Microscopic (04/11/18 22:12) Drug Screen, Random Urine (04/11/18 22:12) Type And Screen (04/11/18 22:12) Ct Brain W/O Iv Contrast(Rout) (04/11/18 ) Cta Brain W Iv Contrast W 3d (04/11/18 22:12) Cta Neck W Iv Contrast W 3d (04/11/18 22:12) Electrocardiogram (04/11/18 ) Beta Hcg (Quant/Titer) (04/11/18 22:12) Consult Neurology (04/11/18 22:12) Sodium Chlor 0.9% 1000 Ml Inj (Ns 1000 M (04/11/18 22:12) Blood Glucose (04/11/18 22:12) Ecg Monitoring (04/11/18 22:12) Iv Access Insert/Monitor (04/11/18 22:12) NPO (04/11/18 22:12) Oximetry (04/11/18 22:12) Resp Oxygen Nc Stroke (04/11/18 ) (Hub Use Only)Inp Phy Cons/Ref (04/11/18 ) Nicardipine Inj (Cardene Inj) (04/11/18 23:00) Aspirin (Aspirin) (04/11/18 23:45) Iodixanol 320 Inj (Rad Ct) (Visipaque 32 (04/11/18 23:53) Admit Order (Ed Use Only) (04/12/18 ) Feed Crusher / Telemetry JIE.Q8H (04/12/18 00:32) Diet Heart Healthy (04/12/18 Breakfast) Activity Bed Rest (04/12/18 00:32) Notify Dr: Other (04/12/18 00:32) Labs Laboratory Tests Test 04/11/18 22:10 04/11/18 23:30 White Blood Count 8.8 TH/MM3 Red Blood Count 4.98 MIL/MM3 Hemoglobin 14.0 GM/DL Hematocrit 42.5 % Mean Corpuscular Volume 85.4 FL Mean Corpuscular Hemoglobin 28.1 PG Mean Corpuscular Hemoglobin Concent 32.9 % Red Cell Distribution Width 12.2 % Platelet Count 206 TH/MM3 Mean Platelet Volume 10.3 FL Neutrophils (%) (Auto) 57.3 % Lymphocytes (%) (Auto) 27.5 % Monocytes (%) (Auto) 8.1 % Eosinophils (%) (Auto) 6.5 % Basophils (%) (Auto) 0.6 % Neutrophils # (Auto) 5.0 TH/MM3 Lymphocytes # (Auto) 2.4 TH/MM3 Monocytes # (Auto) 0.7 TH/MM3 Eosinophils # (Auto) 0.6 TH/MM3 Basophils # (Auto) 0.1 TH/MM3 CBC Comment DIFF FINAL Differential Comment Prothrombin Time 10.0 SEC Prothromb Time International Ratio 1.0 RATIO Activated Partial Thromboplast Time 24.2 SEC Fibrinogen 311 mg/dL Blood Urea Nitrogen 4 MG/DL Creatinine 0.86 MG/DL Random Glucose 98 MG/DL Calcium Level 8.4 MG/DL Sodium Level 142 MEQ/L Potassium Level 3.6 MEQ/L Chloride Level 108 MEQ/L Carbon Dioxide Level 28.7 MEQ/L Anion Gap 5 MEQ/L Estimat Glomerular Filtration Rate 71 ML/MIN Total Creatine Kinase 79 U/L Troponin I LESS THAN 0.02 NG/ML Human Chorionic Gonadotropin, Quant 4 MIU/ML Urine Color YELLOW Urine Turbidity CLEAR Urine pH 6.5 Urine Specific Walker LESS/EQUAL 1.005 Urine Protein NEG mg/dL Urine Glucose (UA) NEG mg/dL Urine Ketones NEG mg/dL Urine Occult Blood NEG Urine Nitrite NEG Urine Bilirubin NEG Urine Urobilinogen 0.2 MG/DL Urine Leukocyte Esterase NEG Urine RBC 0-2 /hpf Urine WBC 0-2 /hpf Urine Squamous Epithelial Cells 0-5 /hpf Urine Bacteria NONE /hpf Urine Opiates Screen NEG Urine Barbiturates Screen NEG Urine Amphetamines Screen NEG Urine Benzodiazepines Screen NEG Urine Cocaine Screen POS Urine Cannabinoids Screen NEG MDM Medical Decision Making Medical Screen Exam Complete: Yes Emergency Medical Condition: Yes Medical Record Reviewed: Yes Interpretation(s) EKG normal sinus rhythm rate [address] elevation injury pattern or ectopy noted Last Impressions Head CTA 04/11/18 2212 Signed Impressions: CONCLUSION: 1. Negative CTA Head. The report was called by Dr. Post to Dr. Moreno at 11:05 PM on 04/11/2018. Head CT 04/11/18 0000 Signed Impressions: CONCLUSION: 1. Negative CT Head non contrast. Vital Signs Date Time Temp Pulse Resp B/P (MAP) Pulse Ox O2 Delivery O2 Flow Rate FiO2 04/11/18 22:55 20 99 04/11/18 22:43 66 20 222/116 (151) 97 04/11/18 22:43 99 Nasal Cannula 2.00 04/11/18 22:10 99 21 04/11/18 22:10 99 21 CBC & BMP Diagram 04/11/18 22:10 Calcium Level 8.4 L Troponin I: Less than 0.02, not elevated Coagulation studies normal range Differential Diagnosis Stroke alert CVA TIA hypertensive emergency/crisis Narrative Course @ 22:10 NIHSS: 2 @ 10:[address] NIHSS 0; BP: 222/116, starting nicardipine to keep SBP >160 mmHg; proceeding with CTA brain and neck; neurologist updated -- no tpa, give aspirin and am consult neurologic exam is intact no pronator drift no limb ataxia motor strength is 5/5 bilateral upper extremities and bilateral lower extremities sensory exam intact DTRs 2+ and equal and no clonus. Speech is normal. Cranial nerves II through XII intact. At 1105 per reading radiologist, Blakely, CTA brain is negative Patient is noted to have markedly elevated blood pressure 222/116 this is been confirmed on multiple blood pressure checks and patient started on nicardipine infusion for blood pressure management keep systolic blood pressure greater than 160 mmHg Patient will be admitted to ICU for ongoing blood pressure management and neuro checks with consult to neurology in the a.m. per Dr. 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 Time to perform other separately billable procedures was not included in the critical care time. My time did not include minutes spent treating any other patients simultaneously or on activities that did not directly contribute to the patient's treatment. The services I provided to this patient were to treat and/or prevent clinically significant deterioration that could result in: ICH, arrhythmia, I provided critical care services requiring my management, as noted below: Chart data review, documentation time, medication orders and management, vital sign assessments/reviewing monitor data, ordering and reviewing lab tests, ordering and interpreting/reviewing x-rays and diagnostic studies, care of the patient and discussion of the patient with the admitting physicians. Physician Communication Physician Communication stroke alert 22:06; discussed with neurologist Dr Frey 22:10; patient to CT 22: 13, returned from CT 22:45; radiologist Dr Post @ 22:50 CT brain negative, neurologist aware -->no tpa; CTA brain negative at 23:05; call placed to [facility] service --discussed with Dr Regalado Diagnosis Primary Impression: Hypertensive urgency Additional Impression: TIA (transient ischemic attack) Admitting Information Admitting Physician Requests: Admit Anca Moreno MD Apr 11, 2018 22:52
[2018-04-11 22:54] LABS: TROPONIN I LESS THAN 0.02 NG/ML (0.02-0.05)
[2018-04-11] MEDS ORDERED: niCARdipine INJ 25 MG in SODIUM CHLOR 0.9% 250 ML INJ 250 ML IV PRN (23:00)
--- NOTE | 2018-04-11 23:08 | RADRPT ---
EXAM DATE: 04/11/2018 10:59 PM EDT AGE/SEX: 47 years / Female INDICATIONS: Stroke alert. Left side weakness. CLINICAL DATA: This is the patient's initial encounter. Patient reports that signs and symptoms have been present for 1 day and indicates a pain score of 4/10. MEDICAL/SURGICAL HISTORY: None. None. RADIATION DOSE: 42.30 CTDI (mGy) ; Combined studies COMPARISON: No prior [place] exams available for comparison. TECHNIQUE: Volumetric scanning was performed using a multi-row detector CT scanner during bolus infu sara of 50 ml Visipaque 320 (iodixanol) nonionic water-soluble contrast as a cumulative dose for mul tiple exams. The data was post processed with a variety of visualization algorithms including full volume maximum intensity projection, multi-planar sliding thin slab reformation, curved planar reform ation, and surface rendering techniques. Using automated exposure control and adjustment of the mA a nd/or kV according to patient size, radiation dose was kept as low as reasonably achievable to obtain optimal diagnostic quality images. FINDINGS: There is excellent visualization of the major intracranial arteries out to the second-order branch ve ssels. There is no evidence for aneurysm, vessel truncation or stenosis, and no evidence for vascula r malformation. CONCLUSION: 1. Negative CTA Head. The report was called by Dr. Post to Dr. Moreno at 11:05 PM on 04/11/2018. Electronically signed by: Too Post MD 04/11/2018 11:07 PM EDT
[2018-04-11 23:39] LABS: BILIRUBIN, URINE NEG (NEG); BLOOD, URINE NEG (NEG); GLUCOSE,URINE NEG (NEG); KETONE, URINE NEG (NEG); NITRITE,URINE NEG (NEG); PH, URINE 6.5 (5.0-8.5); URINE COLOR YELLOW (YELLW/STRAW); URINE LEUKOCYTE ESTERASE NEG (NEG)
[2018-04-11 23:43] LABS: RBC, URINE 0-2 /hpf (0-3); SQUAMOUS EPITHELIAL CELL URINE 0-5 /hpf (0-5); WBC, URINE 0-2 /hpf (0-5)
[2018-04-11] MEDS ORDERED: ASPIRIN 325 MG TAB PO ONE (23:45)
[2018-04-11] MEDS ORDERED: IODIXANOL 320 MG/ML 10 ML VIAL (for Rad CT) IVCONTRAST ONE (23:53)
[2018-04-12] VITALS (30 sets, daily range): BP systolic 103–186; BP diastolic 58–109; PULSE 60–89; RESP 11–39; TEMP 97.3–98.8; O2SAT 94–98
[2018-04-12] MEDS ORDERED: HYDR25TA5 PO ×2 (00:07)
--- NOTE | 2018-04-12 00:45 | RADRPT ---
EXAM DATE: 04/11/2018 11:52 PM EDT AGE/SEX: 47 years / Female INDICATIONS: Left side weakness. Stroke alert. CLINICAL DATA: This is the patient's initial encounter. Patient reports that signs and symptoms have been present for 1 day and indicates a pain score of 4/10. MEDICAL/SURGICAL HISTORY: None. None. RADIATION DOSE: 42.30 CTDI (mGy) ; Combined studies COMPARISON: No prior [place] exams available for comparison. TECHNIQUE: Volumetric scanning was performed using a multirow detector CT scanner during bolus infus ion of 50 ml Visipaque 320 (iodixanol) nonionic water-soluble contrast as a cumulative dose for mult iple exams. The data was postprocessed with a variety of visualization algorithms including full-vo lume maximum intensity projection, multiplanar sliding thin-slab reformation, curved-planar reformati on, and surface-rendering techniques. Using automated exposure control and adjustment of the mA and/ or kV according to patient size, radiation dose was kept as low as reasonably achievable to obtain op timal diagnostic quality images. FINDINGS: Aortic Arch: There is a three-vessel origin of the great vessels from the aorta. No evidence of ost ial narrowing Right Carotid: The common carotid artery is intact. The carotid bulb has a normal configuration wit hout ulceration or narrowing. The internal carotid artery lumen is smooth without stenosis. The ext ernal carotid artery is intact. Left Carotid: The common carotid artery is intact. The carotid bulb has a normal configuration with out ulceration or narrowing. The internal carotid artery lumen is smooth without stenosis. The exte rnal carotid artery is intact. Vertebrals: The vertebral arteries have a symmetric diameter. No stenotic lesions are seen. Elevated flow velocities and ICA/CCA ratios have been found to correlate with increased degrees of ve ssel stenosis, calculated as percentage of diameter relative to a normal segment of distal ICA/CCA. CONCLUSION: 1. Unremarkable CTA of the carotids. Electronically signed by: Shashi Rolon MD 04/12/2018 12:44 AM EDT
[2018-04-12] MEDS ORDERED: CHLORHEXIDINE GLUCONATE 2 % 1 PACK (2 CLOTHS)(extra cloths) TOPICAL PRN (02:00)
[2018-04-12] MEDS: CHLORHEXIDINE GLUCONATE 2 % 1 PACK (2 CLOTHS)(taper/protocol) TOPICAL SCH (04:00)
[2018-04-12] MEDS ORDERED: amLODIPine BESYLATE 5 MG TAB PO ONE (07:30)
--- NOTE | 2018-04-12 08:13 | MH ---
cc: Ashwin Regalado MD DATE OF ADMISSION: 04/12/2018 DATE OF ADMISSION: 04/12/2018 ADMISSION DIAGNOSES: 1. Possible transient ischemic attack. 2. Accelerated hypertension. 3. Gastroesophageal reflux disease. 4. Asthma. 5. Anxiety. 6. Depression. PERTINENT HISTORY: This is a pleasant 47-year-old white female who came to the emergency room after awakening yesterday with some left upper extremity weakness and tingling. She has had history of TIA in the past and is on 162 mg of aspirin a day. She had awakened at about 9:25 p.m. when her symptoms began. She had some weakness and tingling of the left arm. She denied any headache, any speech disturbance, no visual impairment. No weakness of her lower extremities. No vomiting. No palpitations. She drove herself to the hospital where her blood pressure was noted to be quite high in the ED. The ER physician apparently called a Stroke Alert and called the neurologist. She was put on a nicardipine drip because her blood pressure was 222/116. She was not given any tPA. She was given aspirin 325 mg. She was sent for CT imaging of the brain, head and neck CTA; these were negative. Her blood pressure did come down. Her symptoms seemed to resolve and within an hour of the onset, she was recommended admission for control of her blood pressure and neuro checks and consult with the neurologist who stated they would see her this morning. They did talk with Dr. Frey last night. She has no complaint of any symptoms currently. States her arm is back to its baseline. She is still on the nicardipine drip. She does take medication at home for blood pressure. MEDICAL HISTORY: She has hypertension. She denies any diabetes, heart disease, liver or kidney disease or colon disease. She states she had a TIA back in 2014. She denies any cancer or thyroid disease. She has a history of migraine headaches. She is on medication for anxiety and depression. She has asthma that mainly bothers her when she gets bronchitis. She does have a DuoNeb nebulizer, medications she uses if she has wheezing. She denies any current symptoms. She has gastroesophageal reflux disease that she takes ovfi-ode-offafsz Nexium. PAST SURGICAL HISTORY: Laparoscopic cholecystectomy, LARON and BSO. She had an abscess drained from the left parotid region. She had a ganglion cyst removed from the left wrist. She has had arthroscopy of the left knee. ALLERGIES: MULTIPLE ANTIBIOTICS, probably KEFLEX, CLARITHROMYCIN, SULFA, PENICILLIN, APPARENTLY HAD SOME REACTION TO STADOL. MEDICATIONS: 1. She just recently was put on potassium chloride 20 mEq that she takes 1 a day. 2. She has Duo nebulizer to use in her nebulizer as needed. 3. Hydrochlorothiazide 25 mg a day. 4. Trazodone 100 mg at night for sleep. 5. Nexium 24-hour 20 mg [id number] 1 a day. 6. Olmesartan 40 mg a day for blood pressure. 7. Aspirin 81 mg takes 2 daily. 8. Risperdal 1 mg daily. 9. Lexapro 20 mg daily. FAMILY HISTORY: Mother at 73 of colon cancer that had metastasized to her liver. She had also had a prior stroke and heart attack. Her father at 58 of acute alcohol intoxication. SOCIAL HISTORY: She has never . Quit smoking in 2013, never smoked more than 2-3 cigarettes a day for 15 years. Only has occasional beer. 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 REVIEW OF SYSTEMS: GENERAL: No confusion. No fever or chills. HEENT: Without complaints. CARDIOVASCULAR: No chest pain, palpitations. PULMONARY: No cough, hemoptysis or wheezing at this time. GASTROINTESTINAL: No nausea, vomiting, constipation, diarrhea. No rectal bleeding. GENITOURINARY: Without complaint. EXTREMITIES: Without swelling. SKIN: Without rash. PSYCHIATRY: She is stable with her depression and anxiety. NEUROLOGIC: As mentioned, she had no confusion. PHYSICAL EXAMINATION: GENERAL: Pleasant white female in no acute distress. VITAL SIGNS: Her BP is 142/83, pulse in the 60s. O2 saturation 98 percent, respiratory rate 20. HEENT: Pupils are equal. Sclerae nonicteric. Nose without lesion. Mouth without inflammation or lesions. NECK: Without JVD. No bruit. HEART: Regular rate and rhythm. No murmur. LUNGS: Clear. ABDOMEN: Soft, nontender. No masses. EXTREMITIES: No edema. Pulses good in both feet. SKIN: Negative. NEUROLOGIC: Oriented x3. Cranial nerves intact. Motor and sensory intact. Almyic-bq-ftca testing normal, knee oyde-yc-cvbo-to hill testing normal. ASSESSMENT: 1. Possible transient ischemic attack. 2. Hypertensive urgency with blood pressure much better. 3. Prior history of transient ischemic attack. 4. Anxiety. 5. Depression. 6. Asthma - stable. 7. Gastroesophageal reflux disease, stable. PLAN: We will order MRI of the brain. Neurology has been notified last night and is supposed to see her today. We will re-implement her blood pressure medications from home with hydrochlorothiazide 25 mg a day and will change her olmesartan to lisinopril 40 mg a day. She has taken lisinopril in the past and states she had no problem with it. We will add a low dose of amlodipine 2.5 mg a day. The nurses will taper her nicardipine drip down as her blood pressure medications are implemented. She is on aspirin 325 mg a day. As mentioned, her imaging done in the ED with a CTA of the neck/head were negative and a CT brain scan was negative. Her laboratory test was a normal CBC. Her BMP was good. MD NASEEM Garland/KAYLENE , 07:33 AM , 08:12 AM
[2018-04-12] MEDS: POTASSIUM CHLORIDE 20 MEQ CONTROLLED RELEASE TAB PO SCH (08:19)
[2018-04-12] MEDS: ASPIRIN 325 MG TAB PO SCH (08:19)
[2018-04-12] MEDS: HYDROCHLOROTHIAZIDE 25 MG TAB PO SCH (08:19)
[2018-04-12] MEDS: PANTOPRAZOLE SOD 20 MG DELAYED RELEASE TAB PO SCH (08:20)
[2018-04-12] MEDS: ESCITALOPRAM OXALATE 20 MG TAB PO SCH (08:20)
[2018-04-12] MEDS: LISINOPRIL 20 MG TAB PO SCH (08:20)
[2018-04-12] MEDS ORDERED: risperiDONE 1 MG TAB PO SCH ×2 (09:00→21:00)
[2018-04-12] MEDS ORDERED: ASPIRIN 81 MG CHEW TAB CHEW SCH (09:00)
[2018-04-12] MEDS ORDERED: LORazepam 2 MG/ML VIAL IV PRN (09:30)
[2018-04-12] MEDS ORDERED: ACETAMINOPHEN 325 MG TAB PO PRN (09:30)
--- NOTE | 2018-04-12 12:18 | EKG ---
Date Performed: 04/11/2018 Time Performed: 22:51:35 PTAGE: 47 years EKG: Sinus rhythm NORMAL ECG PREVIOUS TRACING : 04/05/2016 07.05 Since the previous tracing, no significant change noted DOCTOR: Rodolfo Jiang Interpretating Date/Time 04/12/2018 12:17:11
--- NOTE | 2018-04-12 12:42 | RADRPT ---
EXAM DATE: 04/12/2018 11:56 AM EDT AGE/SEX: 47 years / Female INDICATIONS: TIA. CLINICAL DATA: This is the patient's initial encounter. Patient reports that signs and symptoms have been present for 2 days and indicates a pain score of 0/10. MEDICAL/SURGICAL HISTORY: Hypertension. Hysterectomy. Cholecystectomy. COMPARISON: [facility], MRI BRAIN W/O CONTRAST, 04/05/2016. . TECHNIQUE: Multiplanar, multisequence examination of the brain was performed without contrast. FINDINGS: The study is mildly degraded by patient motion. Cerebrum: The ventricles are normal for age. No evidence of midline shift, mass lesion, hemorrhage or acute infarction. No extraaxial fluid collections are seen. The pituitary gland and suprasellar cistern are normal in configuration. White Matter: Scattered punctate areas of focal white matter T2 prolongation which appear basically stable, nonspecific. Posterior Fossa: The cerebellum and brainstem are intact. The 4th ventricle is midline. The cerebel lopontine angle is unremarkable. The cerebellar tonsils are normal in position. Diffusion Imaging: No focal areas of restricted diffusion are seen. No evidence of acute infarction . Extracranial: The visualized portions of the orbits and paranasal sinuses are unremarkable. CONCLUSION: No acute intracranial findings Electronically signed by: Yamil Pace MD 04/12/2018 12:41 PM EDT
[2018-04-12] MEDS: CLOPIDOGREL 75 MG TAB PO SCH (20:00)
--- NOTE | 2018-04-12 20:48 | MB ---
cc: Amos Cortes MD, PhD DATE: 04/12/2018 REASON FOR CONSULTATION: TIA. HISTORY OF PRESENT ILLNESS: Ms. James is a 47-year-old female who has a history of TIAs in the past. She developed sudden onset of left arm weakness and numbness. She had no other symptoms such as slurred speech or double vision. Symptoms have since resolved. PAST MEDICAL HISTORY: She has a history of hypertension, history of TIAs in the past, GE reflux, asthma, depression, anxiety. MEDICATIONS AT HOME: She takes aspirin 1 a day, 81 mg, Risperdal 1 mg daily, Lexapro 20 mg daily, olmesartan 40 mg for blood pressure, Nexium, trazodone, hydrochlorothiazide. PHYSICAL EXAMINATION. VITAL SIGNS: Blood pressure is 137/94, pulse is 60, respiratory rate is 16, temperature 98 degrees. NEUROLOGIC: Higher cortical functions are normal. Cranial nerves are intact. Motor exam is 5/5 strength of all groups. There is no drift. Sensory exam intact. Reflexes are symmetric. IMAGING: MRI brain is normal. A CTA of the head is normal. CTA neck is normal. No carotid stenosis. CT brain normal. LABORATORY DATA: White count 8800, hemoglobin 14, hematocrit 42.5%, platelet count 206,000. Sodium 142, potassium 3.6, chloride 108, CO2 is 28, BUN is 4, creatinine 0.86, GFR 71, calcium 8.4. PT 10, INR 1, aPTT 24.2. Tox screen positive for cocaine. URINALYSIS: PH of 6.5, creatinine of 1.005. IMPRESSION: Transient ischemic attack, now resolved. RECOMMENDATIONS: Start Plavix 75 mg daily, would stopped aspirin in 3-4 days. Also, check echocardiogram. Monitor cardiac telemetry, rule out AFib. Also, the patient should be advised to discontinue cocaine use as this is likely contributory. We will also check a lipid panel. Amos Cortes MD, PhD LIZ/TOSHA , 07:22 PM , 08:48 PM
[2018-04-12] MEDS ORDERED: traZODone HCL 100 MG TAB PO SCH (21:00)
[2018-04-12 23:09] LABS: CHOLESTEROL/ HDL RATIO 6.08 RATIO
[2018-04-13] VITALS (13 sets, daily range): BP systolic 114–168; BP diastolic 72–103; PULSE 58–84; RESP 13–32; TEMP 97.4–98.7; O2SAT 93–96
[2018-04-13] MEDS: CHLORHEXIDINE GLUCONATE 2 % 1 PACK (2 CLOTHS)(taper/protocol) TOPICAL SCH (04:00)
[2018-04-13] MEDS: HYDROCHLOROTHIAZIDE 25 MG TAB PO SCH (08:53)
[2018-04-13] MEDS: LISINOPRIL 20 MG TAB PO SCH (08:53)
[2018-04-13] MEDS: ASPIRIN 325 MG TAB PO SCH (08:53)
[2018-04-13] MEDS: PANTOPRAZOLE SOD 20 MG DELAYED RELEASE TAB PO SCH (08:54)
[2018-04-13] MEDS: ESCITALOPRAM OXALATE 20 MG TAB PO SCH (08:54)
[2018-04-13] MEDS: POTASSIUM CHLORIDE 20 MEQ CONTROLLED RELEASE TAB PO SCH (08:54)
[2018-04-13] MEDS: CLOPIDOGREL 75 MG TAB PO SCH (08:54)
[2018-04-13] MEDS ORDERED: amLODIPine BESYLATE 5 MG TAB PO SCH ×2 (09:00→21:00)
--- NOTE | 2018-04-13 13:08 | ECHRPT ---
Indication: TIA CONCLUSIONS The left ventricular systolic function is normal with an estimated ejection fraction in the range of 60-65%. Doppler parameters are consistent with impaired left ventricular relaxtion (grade 1 diastolic dysfun ction). Mild concentric left ventricular hypertrophy. BP: 155 / 98 HR: 68 Rhythm: Sinus MEASUREMENTS (Male / Female) Normal Values Technical Quality:Fair 2D ECHO LV Diastolic Diameter PLAX 4.2 cm 4.2 - 5.9 / 3.9 - 5.3 cm LV Systolic Diameter PLAX 2.9 cm IVS Diastolic Thickness 1.0 cm 0.6 - 1.0 / 0.6 - 0.9 cm LVPW Diastolic Thickness 1.2 cm 0.6 - 1.0 / 0.6 - 0.9 cm LV Relative Wall Thickness 0.5 RV Internal Dim ED PLAX 2.6 cm LVOT Diameter 1.8 cm Aortic Root Diameter 2.5 cm LA Systolic Diameter LX 4.0 cm 3.0 - 4.0 / 2.7 - 3.8 cm M-MODE AV Cusp Separation MM 1.7 cm DOPPLER AV Peak Velocity 110.0 cm/s AV Peak Gradient 4.8 mmHg AV Mean Gradient 3.0 mmHg AV Velocity Time Integral 20.0 cm LVOT Peak Velocity 89.5 cm/s LVOT Peak Gradient 3.2 mmHg LVOT Velocity Time Integral 15.7 cm AV Area Cont Eq vti 2.0 cm AV Area Cont Eq pk 2.1 cm Mitral E Point Velocity 62.7 cm/s Mitral A Point Velocity 88.4 cm/s Mitral E to A Ratio 0.7 LV E' Lateral Velocity 5.6 cm/s Mitral E to LV E' Lateral Ratio 11.3 LV E' Septal Velocity 4.7 cm/s Mitral E to LV E' Septal Ratio 13.4 PV Peak Velocity 66.2 cm/s PV Peak Gradient 1.8 mmHg FINDINGS LEFT VENTRICLE Normal left ventricular size. The left ventricular systolic function is normal with an estimated ejection fraction in the range of 60-65%. No regional wall motion abnormalities are present. Doppler parameters are consistent with impaired left ventricular relaxtion (grade 1 diastolic dysfun ction). Mild concentric left ventricular hypertrophy. RIGHT VENTRICLE Normal right ventricular size and systolic function. LEFT ATRIUM The left atrial size is mildly dilated. RIGHT ATRIUM The right atrial size is normal. ATRIAL SEPTUM No atrial level shunt is demonstrated by color flow Doppler interrogation. AORTA The aortic root and proximal ascending aorta are normal in size on limited imaging. MITRAL VALVE Structurally normal mitral valve. No mitral valve stenosis or regurgitation. AORTIC VALVE Trileaflet aortic valve. No aortic valve stenosis or regurgitation. TRICUSPID VALVE Structurally normal tricuspid valve. No tricuspid valve stenosis or regurgitation. PULMONARY VALVE No pulmonary valve regurgitation or stenosis. VESSELS The inferior vena cava is normal in size. PERICARDIUM No pericardial effusion. Devonte Carter DO (Electronically Signed) Final Date:13 April 2018 13:07
[2018-04-13] MEDS ORDERED: PLAV75TA29 PO (14:23)
[2018-04-13] MEDS ORDERED: AMLO5 PO (14:23)
[2018-04-13] MEDS ORDERED: ASA325 PO (14:23)
--- NOTE | 2018-04-13 14:37 | HHI.PR ---
Subjective Remarks She has no complaints. No weakness or numbness of her left arm. I did confront her today about her urine drug screen on admission being positive for cocaine but she stated she has never used cocaine and that they drug test her at work. She states she sometimes uses a Lidocaine patch for back pain. Objective Vitals Vital Signs Date Time Temp Pulse Resp B/P (MAP) Pulse Ox O2 Delivery O2 Flow Rate FiO2 04/13/18 12:00 98.3 78 24 146/103 (117) 04/13/18 12:00 74 04/13/18 11:00 82 31 149/85 (106) 04/13/18 10:00 70 04/13/18 10:00 70 22 168/88 (114) 04/13/18 09:02 84 32 153/94 (113) 04/13/18 08:00 98.4 66 29 148/91 (110) 94 04/13/18 08:00 66 04/13/18 07:00 68 18 154/97 (116) 95 04/13/18 06:00 68 04/13/18 06:00 68 17 155/98 (117) 96 04/13/18 05:00 62 17 143/89 (107) 94 04/13/18 04:00 58 04/13/18 04:00 97.4 58 16 146/98 (114) 95 04/13/18 03:00 62 17 119/76 (90) 93 04/13/18 02:00 58 04/13/18 02:00 58 19 125/78 (94) 94 04/13/18 01:00 64 13 114/80 (91) 96 04/13/18 00:00 64 04/13/18 00:00 98.7 64 22 114/72 (86) 94 04/12/18 23:00 70 14 103/58 (73) 94 04/12/18 22:00 66 04/12/18 22:00 66 16 113/72 (86) 94 04/12/18 21:00 66 14 109/70 (83) 94 04/12/18 20:02 95 21 04/12/18 20:00 66 04/12/18 20:00 98.3 68 24 137/90 (106) 96 04/12/18 19:00 80 11 141/89 (106) 96 04/12/18 18:00 74 04/12/18 16:30 98.5 60 16 137/94 (108) 97 04/12/18 16:00 64 Result Diagram: 04/11/18 2210 04/11/18 2210 Other Results Laboratory Tests Test 04/11/18 22:10 04/11/18 23:30 04/12/18 02:03 04/12/18 20:05 White Blood Count 8.8 TH/MM3 Red Blood Count 4.98 MIL/MM3 Hemoglobin 14.0 GM/DL Hematocrit 42.5 % Mean Corpuscular Volume 85.4 FL Mean Corpuscular Hemoglobin 28.1 PG Mean Corpuscular Hemoglobin Concent 32.9 % Red Cell Distribution Width 12.2 % Platelet Count 206 TH/MM3 Mean Platelet Volume 10.3 FL Neutrophils (%) (Auto) 57.3 % Lymphocytes (%) (Auto) 27.5 % Monocytes (%) (Auto) 8.1 % Eosinophils (%) (Auto) 6.5 % Basophils (%) (Auto) 0.6 % Neutrophils # (Auto) 5.0 TH/MM3 Lymphocytes # (Auto) 2.4 TH/MM3 Monocytes # (Auto) 0.7 TH/MM3 Eosinophils # (Auto) 0.6 TH/MM3 Basophils # (Auto) 0.1 TH/MM3 CBC Comment DIFF FINAL Differential Comment Prothrombin Time 10.0 SEC Prothromb Time International Ratio 1.0 RATIO Activated Partial Thromboplast Time 24.2 SEC Fibrinogen 311 mg/dL Blood Urea Nitrogen 4 MG/DL Creatinine 0.86 MG/DL Random Glucose 98 MG/DL Calcium Level 8.4 MG/DL Sodium Level 142 MEQ/L Potassium Level 3.6 MEQ/L Chloride Level 108 MEQ/L Carbon Dioxide Level 28.7 MEQ/L Anion Gap 5 MEQ/L Estimat Glomerular Filtration Rate 71 ML/MIN Total Creatine Kinase 79 U/L Troponin I LESS THAN 0.02 NG/ML Human Chorionic Gonadotropin, Quant 4 MIU/ML Urine Color YELLOW Urine Turbidity CLEAR Urine pH 6.5 Urine Specific [place] LESS/EQUAL 1.005 Urine Protein NEG mg/dL Urine Glucose (UA) NEG mg/dL Urine Ketones NEG mg/dL Urine Occult Blood NEG Urine Nitrite NEG Urine Bilirubin NEG Urine Urobilinogen 0.2 MG/DL Urine Leukocyte Esterase NEG Urine RBC 0-2 /hpf Urine WBC 0-2 /hpf Urine Squamous Epithelial Cells 0-5 /hpf Urine Bacteria NONE /hpf Urine Opiates Screen NEG Urine Barbiturates Screen NEG Urine Amphetamines Screen NEG Urine Benzodiazepines Screen NEG Urine Cocaine Screen POS Urine Cannabinoids Screen NEG Nasal Screen MRSA (PCR) MRSA NOT DETECTED Triglycerides Level 226 MG/DL Cholesterol Level 219 MG/DL LDL Cholesterol 138 MG/DL HDL Cholesterol 36.0 MG/DL Cholesterol/HDL Ratio 6.08 RATIO Imaging Last Impressions Brain MRI 04/12/18 0000 Signed Impressions: CONCLUSION: No acute intracranial findings Neck CTA 04/11/182211 Signed Impressions: CONCLUSION: 1. Unremarkable CTA of the carotids. Head CTA 04/11/182211 Signed Impressions: CONCLUSION: 1. Negative CTA Head. The report was called by Dr. Post to Dr. Moreno at 11:05 PM on 04/11/2018. Head CT 04/11/18 0000 Signed Impressions: CONCLUSION: 1. Negative CT Head non contrast. 2D echo showed no significant abnormality. Objective Remarks Exam: Alert white female in no distress. HEENT: Pupils equal, no scleral icterus, mouth negative Neck; No JVD, no bruit Heart: RRR with no murmurs Lungs: Clear Abdomen: soft, nontender, no masses Extremities: no edema, pulses palpated Neuro: Alert, oriented, no motor or sensory deficits A/P Assessment and Plan Assessment: 1) TIA 2) Hypertensive urgency with blood pressure better 3) Asthma 4) Anxiety 5) Depression Plan: She will be discharged today (cleared by Dr Cortes). She was started on Clopidogrel 75mg daily which replaced the baby aspirin she was on when she came to the hospital. She will continue Aspirin 325mg for three more days and then stop after she takes it on Thursday of this week. I left a script also for Amlodipine 5mg twice a day for hypertension and she will continue her home BP medications. She will followup with her PCP Dr Escoto in one week and neurology (Dr Cortes) in 2 weeks. Ashwin Regalado MD Apr 13, 2018 14:37
[2018-04-13] MEDS ORDERED: LISI-515 PO (14:39)
== END 2018-04-13 15:05 | disposition home or self-care (01) ==
LOC: PHED 22:02 → INTOOBSV 04-12 00:35 → PHEDA 04-12 00:35 → PHICU 04-12 01:25
PROVIDERS: ADMIT Family Medicine; ATTEND Family Medicine
DX: I16.0 Hypertensive urgency (principal); G45.9 Transient cerebral ischemic attack, unspecified; Z86.73 Personal history of transient ischemic attack (TIA), and cerebral infarction without residual deficits; F41.9 Anxiety disorder, unspecified; F32.9 Major depressive disorder, single episode, unspecified; J45.909 Unspecified asthma, uncomplicated; K21.9 Gastro-esophageal reflux disease without esophagitis; Z79.899 Other long term (current) drug therapy; Z79.82 Long term (current) use of aspirin; I10 Essential (primary) hypertension; Z90.710 Acquired absence of both cervix and uterus; E78.5 Hyperlipidemia, unspecified; G43.909 Migraine, unspecified, not intractable, without status migrainosus; F41.8 Other specified anxiety disorders; Z79.01 Long term (current) use of anticoagulants; K44.9 Diaphragmatic hernia without obstruction or gangrene; F14.90 Cocaine use, unspecified, uncomplicated; Z80.0 Family history of malignant neoplasm of digestive organs; Z87.891 Personal history of nicotine dependence
CPT/HCPCS: 70450; 70496; 70498; 70551; 80048; 80061; 80307; 81001; 82550; 84484; 84702; 85025; 85384; 85610; 85730; 86850; 86900; 86901; 87641; 93005; 93306; 96361; 96365; 96366; 96375; 99291; G0378; J2060; J7030; J7050; Q9967